=== PATIENT | female | born 1980 | race Caucasian/White ===

== ENCOUNTER → 2016-11-04 | Outpatient (CLI) | payer OTHER | LOC: NM 09:30 | DX: R10.13 Epigastric pain (principal); R10.31 Right lower quadrant pain; R93.3 Abnormal findings on diagnostic imaging of other parts of digestive tract | CPT/HCPCS: 78264; A9541 ==

== ENCOUNTER 2020-11-09 23:39 | Emergency (ER) | payer OTHER ==
[~2020-11-09 23:39] MED LIST: DOXYCYCLINE HY100 MG PO; IBUPROFEN800 MG PO; VISTARIL 50 MG50 MG PO
== END 2020-11-10 00:45 | disposition left against medical advice (07) ==
LOC: ER1 23:39
DX: R10.10 Upper abdominal pain, unspecified (principal); R07.9 Chest pain, unspecified
CPT/HCPCS: 99284

== ENCOUNTER 2021-01-24 18:57 | Emergency (ER) | payer OTHER ==
[2021-01-24 19:55] LABS: HEMOGLOBIN 14.6 gm/dl (12.3-15.3); RED BLOOD COUNT 4.93 M/UL (4.00-5.10); WHITE BLOOD COUNT 8.2 K/UL (4.5-11.0)
[2021-01-24 20:14] LABS: BUN/CREATININE RATIO 13 (0-10)
[2021-01-25] MEDS ORDERED: PROTONIX 40 MG40 M1 PO (00:56)
== END 2021-01-25 01:08 | disposition home or self-care (01) ==
LOC: ER1 18:57
PROVIDERS: Emergency Medicine
DX: R10.11 Right upper quadrant pain (principal); I10 Essential (primary) hypertension; Z90.49 Acquired absence of other specified parts of digestive tract
CPT/HCPCS: 71046; 80053; 81001; 83690; 84703; 85025; 96374; 96375; 99284; J1885; J2405; Q9967

== ENCOUNTER 2021-06-24 16:07 | Emergency (ER) | payer OTHER ==
[~2021-06-24 16:07] MED LIST changes: +PROTONIX 40 MG40 M1 PO
[2021-06-24 17:02] LABS: HEMOGLOBIN 13.7 gm/dl (12.3-15.3); RED BLOOD COUNT 4.4 M/UL (4.00-5.10); WHITE BLOOD COUNT 14.8 K/UL (4.5-11.0)
[2021-06-24 17:26] LABS: BUN/CREATININE RATIO 15 (0-10)
[2021-06-24] MEDS ORDERED: PERCOCET 5/325 T1 EA PO (21:18)
[2021-06-24] MEDS ORDERED: CLINDAMYCIN HC300 MG PO (21:22)
[2021-06-25] MEDS ORDERED: PERCOCET 5/325 T1 EA PO (10:29)
== END 2021-06-24 21:40 | disposition home or self-care (01) ==
LOC: ER1 16:07
PROVIDERS: Emergency Medicine
DX: L03.211 Cellulitis of face (principal); K04.7 Periapical abscess without sinus; F17.200 Nicotine dependence, unspecified, uncomplicated
CPT/HCPCS: 70488; 80048; 85025; 96372; 96374; 99284; J1885; Q9967

== ENCOUNTER 2021-08-06 14:14 | Emergency (ER) | payer OTHER ==
[~2021-08-06 14:14] MED LIST changes: +CLINDAMYCIN HC300 MG PO; +PERCOCET 5/325 T1 EA PO
[2021-08-06 15:40] LABS: HEMOGLOBIN 13.4 gm/dl (12.3-15.3); RED BLOOD COUNT 4.3 M/UL (4.00-5.10); WHITE BLOOD COUNT 17.4 K/UL (4.5-11.0)
[2021-08-06 16:01] LABS: BUN/CREATININE RATIO 17 (0-10)
[2021-08-06] MEDS ORDERED: PENICILLIN V P500 MG PO (17:09)
[2021-08-06] MEDS ORDERED: METRONIDAZOLE500 MG PO (17:09)
[2021-08-06] MEDS ORDERED: HYDROCODON-ACE1 EAC4 PO ×2 (17:13→17:20)
[2021-08-06] MEDS ORDERED: IBUPROFEN800 MG PO (17:18)
== END 2021-08-06 17:47 | disposition home or self-care (01) ==
LOC: ER1 14:14
PROVIDERS: Physician Assistant
DX: K04.7 Periapical abscess without sinus (principal); R63.5 Abnormal weight gain; R60.0 Localized edema; I10 Essential (primary) hypertension; K21.9 Gastro-esophageal reflux disease without esophagitis; F17.200 Nicotine dependence, unspecified, uncomplicated
CPT/HCPCS: 70487; 71045; 80053; 81001; 82550; 82553; 83605; 83874; 83880; 84484; 84703; 85025; 87040; 93005; 96374; 96375; 99284; J0295; J1885; Q9967